=== PATIENT | female | born 2000 | race Caucasian/White ===

== ENCOUNTER 2021-06-13 10:51 | Emergency (ER) | payer OTHER, SELFPAY ==
[2021-06-13 11:02] VITALS: BP 103/60; PULSE 91; RESP 18; TEMP 36.8; O2SAT 99
--- NOTE | 2021-06-13 11:04 | ED.URI ---
HPI - URI/Sore Throat General Chief Complaint: Upper Respiratory Infection Stated Complaint: sore throat,cold sweats Time Seen by Provider: 06/13/21 11:04 Source: patient and RN notes reviewed Mode of arrival: ambulatory Limitations: no limitations History of Present Illness HPI Narrative: 20-year-old female presents to the [facility] with complaints of sweats and sore throat. Patient reports sore throat started at 1900 last night. Developed a fever of 100.4 this morning took some medications. Has subsided. No other symptoms at this time. MD elicited complaint: sore throat Related Data Home Medications Medication Instructions Recorded Confirmed No Home Medications 06/13/21 06/13/21 Allergies Allergy/AdvReac Type Severity Reaction Status Date / Time No Known Allergies Allergy Verified 06/13/21 11:19 Review of Systems Review of Systems: All systems reviewed & are unremarkable except as noted in HPI and below Constitutional: Constitutional: Reports no additional constitutional complaints, Denies chills and Denies fever(s) Eyes: Eyes: Reports no additional eye complaints ENT: Reports as per HPI and Reports sore throat Cardiovascular: Cardiovascular: Reports no additional cardiovascular complaints Respiratory: Respiratory: Reports no additional respiratory complaints, Denies cough and Denies dyspnea Gastrointestinal: Gastrointestinal: Reports no additional gastrointestinal complaints Musculoskeletal: Musculoskeletal: Reports no additional musculoskeletal complaints Integumentary/Breasts: Skin/Breast: Reports system reviewed and no additional complaints, except as docu Neurologic: Reports system reviewed and no additional complaints, except as documented Psychiatric: Psychiatric: Reports no additional psychiatric complaints Allergic/Immunologic: Allergic/Immunologic: Reports no additional allergic/immunologic complaints PMFSH Past Medical History Medical History (Updated 06/13/21 @ 19:20 by Elida Peterson) No significant medical problems Surgical History Surgical History (Updated 06/13/21 @ 19:20 by Elida Peterson) No significant past surgical history Social History Social History (Updated 06/13/21 @ 19:20 by Elida Peterson) Occupation/Education: student Gender identity (if verbalized by the patient): Female Comments At the time of my signature, I reviewed and agree with the nursing past medical, surgical, social, and family history. There is no relevant family history pertinent to the patient complaint. Exam Const: General: healthy appearing, no acute distress and alert Nutritional Appearance: well nourished Orientation/consciousness: patient oriented x3 Limitations: no limitations HENMT: Head: normal to inspection Ears: external ears normal, TM's normal bilaterally and EAC's normal General nose exam: Normal external nose present and Normal nares present Face and sinus: normal facial exam and sinuses nontender Mouth: Yes moist mucous membranes Throat: posterior oropharynx normal and uvula midline Eyes: Conjunctivae: conjunctivae normal Pupils: Equal, round and reactive pupils present Neck: Neck: normal visual inspection, no lymphadenopathy and no meningeal signs Chest: Chest palpation & inspection: normal inspection of the chest Resp: Effort & Inspection: normal respiratory effort and no use of accessory muscles Auscultation: clear to auscultation bilaterally, no crackles, no rales, no rhonchi and no wheezes Cardio: Rate: regular rate Rhythm: regular rhythm GI: GI Palp: Yes Soft to palpation and No Tenderness to palpation present (GI) : General: Yes no CVA tenderness Skin: General skin exam: normal color Neuro: General: patient oriented x3, moves all extremities, no meningeal signs and no focal motor deficits Speech: normal speech Gait exam (Neuro): Normal gait present Extrem: General: normal to inspection Psych: Appearance: grossly normal and well kempt M
== END 2021-06-13 11:44 | disposition home or self-care (01) ==
PROVIDERS: Emergency Provider Nurse Practitioner
DX: J02.8 Acute pharyngitis due to other specified organisms (principal)
CPT/HCPCS: 87081; 87880; 99203; G0463

== ENCOUNTER 2021-12-21 10:18 | Emergency (ER) | payer OTHER, SELFPAY ==
[2021-12-21 10:43] VITALS: BP 94/56; PULSE 89; RESP 18; TEMP 36.3; O2SAT 100
--- NOTE | 2021-12-21 11:19 | ED.UPPEXIN ---
HPI - Extremity Injury (Upper) General Chief Complaint: Extremity Injury, Upper Stated Complaint: lt middle finger swelling and redness Time Seen by Provider: 12/21/21 10:50 Source: patient Mode of arrival: ambulatory Limitations: no limitations History of Present Illness HPI narrative: 21-year-old female presents with complaint of pain, redness and swelling to left middle finger. Reports symptoms for about a week. States that she has been draining the area herself but is not completely getting better. States that she does bite her nails and cuticles and had been specifically biting and picking at this finger. Denies fever chills. All systems reviewed and negative except as noted above. Related Data Allergies Allergy/AdvReac Type Severity Reaction Status Date / Time No Known Allergies Allergy Verified 12/21/21 11:00 Review of Systems Review of Systems: CONSTITUTIONAL: Denies fever, chills, or sweats. EYES: Denies visual changes, redness, or discharge. ENT: Denies rhinorrhea, congestion, sore throat, or otalgia. CARDIOVASCULAR: Denies chest pain, palpitations, or edema. RESPIRATORY: Denies cough or dyspnea. GASTROINTESTINAL: Denies abdominal pain, nausea, vomiting, or diarrhea. GENITOURINARY: Denies dysuria or hematuria. SKIN: Reports tenderness, redness and swelling to distal aspect of left middle finger. MUSCULOSKELETAL: Denies back pain, joint pain, or myalgia. NEUROLOGIC: Denies headache, numbness, or weakness. PSYCHIATRIC: Denies anxiety or depression. All other systems reviewed are negative, except as documented in HPI. [facility] Past Medical History Medical History (Updated 12/21/21 @ 11:06 by Kenisha Rojas NP) No significant medical problems Surgical History Surgical History (Updated 06/13/21 @ 19:20 by Elida Peterson APRN) No significant past surgical history Social History Social History (Updated 06/13/21 @ 19:20 by Elida Peterson APRN) Gender identity (if verbalized by the patient): Female Comments At time of signature, agree with nursing past medical, surgical, social and family history. There is no relevant family history pertinent to the presenting complaint. Exam Narrative: GENERAL: This is a well-nourished, well-developed patient, in no apparent distress. HEAD: normocephalic, atraumatic. EYES: PERRL. Sclera clear/white. Vision is grossly intact. EARS: External ears normal NOSE: External nose normal NECK: Neck supple, non-tender without lymphadenopathy, masses or thyromegaly. CARDIOVASCULAR: Regular rate and rhythm without murmurs, gallops, or rubs. RESPIRATORY: Clear to auscultation. Breath sounds equal bilaterally. No wheezes, rales, or rhonchi. SKIN: warm, Dry, intact with no suspicious lesions or rash, good texture and turgor. Erythema, swelling to lateral aspect of cuticle of left middle finger. There is no drainage. There is no fluctuance or purulence noted to perform an I&D. NEURO: awake, alert, and oriented to person, place and time. There were no obvious focal neurologic abnormalities. EXTREMITIES: Normal range of motion to all extremities. Course Course Level of Care: Express Care Visit Vital Signs Vital signs: Vital Signs Temperature 36.3 C L 12/21/21 10:43 Pulse Rate 89 12/21/21 10:43 Respiratory Rate 18 12/21/21 10:43 Blood Pressure 94/56 L 12/21/21 10:43 Pulse Oximetry 100 12/21/21 10:43 Temperature 36.3 C L 12/21/21 10:43 Pulse Rate 89 12/21/21 10:43 Respiratory Rate 18 12/21/21 10:43 Blood Pressure 94/56 L 12/21/21 10:43 Pulse Oximetry 100 12/21/21 10:43 Reviewed MDM - Extremity Injury (Upper) MDM Narrative Medical decision making narrative: Patient is aware of diagnosis, understands and agrees to treatment plan. Anticipatory guidance given. Patient agrees to follow-up as directed and is aware of reasons to seek care at the emergency department. Portions of this record may have been created with voice recognition soft
== END 2021-12-21 11:09 | disposition home or self-care (01) ==
PROVIDERS: Emergency Provider Nurse Practitioner Family
DX: L03.012 Cellulitis of left finger (principal)
CPT/HCPCS: 99213; G0463

== ENCOUNTER 2022-01-19 13:19 | Emergency (ER) | payer OTHER, SELFPAY ==
--- NOTE | 2022-01-19 13:23 | ED.FEMALEGU ---
HPI - Female Genitourinary General Chief complaint: Urogenital-Female Stated complaint: poss std exposure Time Seen by Provider: 01/19/22 13:23 Source: patient Mode of arrival: ambulatory Limitations: no limitations History of Present Illness HPI Narrative: Ms. Sam is a 21-year-old female patient presenting to the clinic today with complaints of possible STD exposure. She reports that she got a call from a sexual partner that had tested positive for chlamydia. She denies any vaginal odor, discharge, or pelvic pain. She is seeking treatment. She denies any fever, chills, back pain, urinary symptoms, nausea, vomiting, or diarrhea MD elicited complaint: possible STD Related Data Allergies Allergy/AdvReac Type Severity Reaction Status Date / Time No Known Allergies Allergy Verified 01/19/22 13:42 Review of Systems Review of Systems: Pertinent positives per HPI. Patient denies any fever, chills, rash, headache, visual changes, dizziness, cough, runny nose, sore throat, shortness of breath, chest pain, palpitations, nausea, vomiting, diarrhea, constipation, abdominal pain, or any urinary issues. PMFSH Past Medical History Medical History No significant medical problems Surgical History Surgical History No significant past surgical history Social History Social History Gender identity (if verbalized by the patient): Female Exam Narrative: General: Well-developed, well nourished, in no apparent distress Head: Normocephalic, atraumatic. Cardio: Regular rate and rhythm, s1 and s2 normal, no murmur appreciated. Resp: Clear to auscultation bilaterally, no rhonchi, rales, wheezing or rubs. Abdomen: Soft, pliable, bowel sounds present in all quadrants, non-tender to palpation, no organomegaly, no CVAT tenderness. : Deferred Course Course Emergency Course: This electronic medical record was dictated using voice recognition software and may contain some grammatical errors. Level of Care: Express Care Visit Vital Signs Vital signs: Vital signs reviewed MDM - Female Genitourinary MDM Narrative Medical decision making narrative: The time of visit patient is resting comfortably on the exam table. She denies any vaginal discharge, pain, or foul odor. Dirty urine was left to send off for trichomonas, chlamydia, and gonorrhea. Treated patient with 500 mg of Rocephin IM and 7-day course of doxycycline sent to her pharmacy. Anticipatory guidance and supportive measures were discussed and patient voiced understanding of discharge instructions. Differential Diagnosis Differential diagnosis: Likely bacterial vaginosis, trichomoniasis, cervicitis, vaginitis and other (Chlamydia, gonorrhea) Discharge Plan Discharge Clinical Impression: Exposure to STD Patient Disposition: Home, Self-Care Condition: Stable Instructions: Antibiotic Form, Sexually Transmitted Diseases (ED), Safe Sex Practices (ED) Additional Instructions: UA negative for any signs of infection-sent for chlamydia, gonorrhea, and trichomonas testing Rocephin 500 mg IM given in the clinic today. No vaginal, oral, or anal intercourse x1 week. Take doxycycline until its gone as prescribed Increase fluids and stay well-hydrated Use safe sex practices Follow-up with your PCP as needed Prescriptions: New doxycycline monohydrate 100 mg capsule 100 mg PO BID 7 Days Qty: 14 0RF Follow-up/Referrals: PHYSICIAN,MARKETING RECRUITER [Primary Care Provider] - Time of Disposition: 13:48
[2022-01-19 13:32] VITALS: BP 109/65; PULSE 73; RESP 18; TEMP 36.5; O2SAT 100
[2022-01-19] MEDS: cefTRIAXone 500 MG, LIDOCAINE HCL 1% LOCAL INJ 1 ML IM (13:49)
== END 2022-01-19 14:05 | disposition home or self-care (01) ==
PROVIDERS: Emergency Provider Nurse Practitioner Family
DX: Z20.2 Contact with and (suspected) exposure to infections with a predominantly sexual mode of transmission (principal)
CPT/HCPCS: 81003; 87491; 87591; 87661; 96372; 99214; G0463; J0696

== ENCOUNTER 2022-05-09 10:14 | Emergency (ER) | payer OTHER, SELFPAY ==
[2022-05-09 10:27] VITALS: BP 106/75; PULSE 62; RESP 18; TEMP 36.9; O2SAT 100
--- NOTE | 2022-05-09 10:41 | ED.FEMALEGU ---
HPI - Female Genitourinary General Chief complaint: Urogenital-Female Stated complaint: std testing History of Present Illness HPI Narrative: This is a 21 year old that comes in worried as she does not want to have any STD and she is in a serious relationship and she just wants to make sure that she is clean. 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 Patient denies any symptoms of STD no urination issues no sores, no pain . Patient states she does have something by her mouth that I will not be able to see but can feel like something is coming possibly a pimple she denies any history of herpes. Related Data Home Medications Medication Instructions Recorded Confirmed quetiapine 50 mg tablet 50 mg PO HS 05/09/22 05/09/22 Allergies Allergy/AdvReac Type Severity Reaction Status Date / Time No Known Allergies Allergy Verified 05/09/22 10:24 Review of Systems Review of Systems: All systems reviewed & are unremarkable except as noted in HPI and below PMFSH Past Medical History Medical History No significant medical problems Surgical History Surgical History No significant past surgical history Social History Social History Gender identity (if verbalized by the patient): Female Exam Narrative: GENERAL:Well-appearing, well-nourished, and in no acute distress. HEAD:Normocephalic, atraumatic. EYES: PERRLA and EOMI. ENT: Nares clear, no rhinorrhea or epistaxis. Mucous membranes moist. NECK: Supple. CHEST: Clear to auscultation. No respiratory distress. HEART: Regular rate and rhythm. No murmur heard. Normal peripheral pulses. ABDOMEN: Soft, nontender, nondistended, normal active bowel sounds. EXTREMITIES: Normal range of motion. No edema. SKIN: Warm, dry, no rash. NEURO: No focal deficits. Alert and oriented x3. Course Course Level of Care: Express Care Visit Vital Signs Vital signs: Vital Signs Temperature 98.5 F 05/09/22 10:27 Pulse Rate 62 05/09/22 10:27 Respiratory Rate 18 05/09/22 10:27 Blood Pressure 106/75 05/09/22 10:27 Pulse Oximetry 100 05/09/22 10:27 Oxygen Delivery Room Air 05/09/22 10:27 Temperature 98.5 F 05/09/22 10:27 Pulse Rate 62 05/09/22 10:27 Respiratory Rate 18 05/09/22 10:27 Blood Pressure 106/75 05/09/22 10:27 Pulse Oximetry 100 05/09/22 10:27 Oxygen Delivery Room Air 05/09/22 10:27 MDM - Female Genitourinary MDM Narrative Medical decision making narrative: trich/Gonc culture sent Lab Data Labs: Urine Glucose Negative Reference Range: Negative Urine Bilirubin Negative Reference Range: Negative Urine Ketone Negative Reference Range: Negative Urine Specific [place] 1.030 Reference Range:1.001-1.035 Urine Blood Negative Reference Range: Negative * * Urine pH 6.5 Reference Range: 5.0-9.0 Urine Protein Negative Reference Range: Negative Urine Urobilinogen 0.2 Reference Range: 0.2-1.0 Urine Nitrate Negative Reference Range: Negative Urine Leukocyte Negative Reference Range: Negat
== END 2022-05-09 10:52 | disposition home or self-care (01) ==
PROVIDERS: Emergency Provider Nurse Practitioner Family
DX: Z70.8 Other sex counseling (principal); Z11.3 Encounter for screening for infections with a predominantly sexual mode of transmission
CPT/HCPCS: 81003; 87491; 87591; 87661; 99214; G0463

== ENCOUNTER 2022-08-04 11:43 | Emergency (ER) | payer OTHER, SELFPAY ==
[2022-08-04 11:48] VITALS: BP 107/71; PULSE 101; RESP 16; TEMP 37.7; O2SAT 99
--- NOTE | 2022-08-04 12:15 | ED.URI ---
HPI - URI/Sore Throat General Chief Complaint: Upper Respiratory Infection Stated Complaint: COUGH/FEVER Time Seen by Provider: 08/04/22 12:19 Source: patient and RN notes reviewed Mode of arrival: ambulatory Limitations: no limitations History of Present Illness HPI Narrative: 21-year-old female presented for complaint of cough, sore throat, and fever over the last 2 days. She endorses sore throat is improved today. She denies shortness of breath, wheezing, nausea, vomiting, diarrhea. She states her temperature was up to 101 this morning. She has taken Tylenol for symptoms. Denies sick contacts. MD elicited complaint: cough Related Data Home Medications Medication Instructions Recorded Confirmed quetiapine 50 mg tablet 50 mg PO HS 05/09/22 05/09/22 lamotrigine 25 mg tablet 25 mg PO DIRECTED 08/04/22 08/04/22 Allergies Allergy/AdvReac Type Severity Reaction Status Date / Time No Known Allergies Allergy Verified 05/09/22 10:24 Review of Systems Review of Systems: ROS per HPI [facility] Past Medical History Medical History No significant medical problems Surgical History Surgical History No significant past surgical history Social History Social History Gender identity (if verbalized by the patient): Female Exam Narrative: GENERAL: well-appearing, nontoxic no acute distress. HEAD: Normocephalic EYES: PERRLA, conjunctivae clear ENT: Mucous membranes moist. TMs pearly mistry with dull light reflex bilaterally; no tragal tenderness. Oropharynx normal without lesions or exudate, no drooling, no hoarseness, no trismus, uvula midline. CHEST: Clear to auscultation, breath sounds equal. No wheezing, rhonchi, rales, or stridor. No respiratory distress, speaks in full sentences. HEART: Regular rate and rhythm. No murmur heard. SKIN: Warm, dry, no rash. NEURO: Alert and oriented x3. PSYCH: Normal mood and affect Course Course Emergency Course: Patient is aware of diagnosis, understands and agrees to treatment plan. Anticipatory guidance given. Patient agrees to follow-up as directed and is aware of reasons to seek care at the emergency department. Portions of this record may have been created with voice recognition software Level of Care: Express Care Visit Vital Signs Vital signs: Vital Signs Temperature 99.9 F H 08/04/22 11:48 Pulse Rate 101 H 08/04/22 11:48 Respiratory Rate 16 08/04/22 11:48 Blood Pressure 107/71 08/04/22 11:48 Pulse Oximetry 99 08/04/22 11:48 Oxygen Delivery Room Air 08/04/22 11:48 Temperature 99.9 F H 08/04/22 11:48 Pulse Rate 101 H 08/04/22 11:48 Respiratory Rate 16 08/04/22 11:48 Blood Pressure 107/71 08/04/22 11:48 Pulse Oximetry 99 08/04/22 11:48 Oxygen Delivery Room Air 08/04/22 11:48 reviewed MDM - URI/Sore Throat MDM Narrative Medical decision making narrative: flu positive. Advised supportive measures and signs/symptoms to go to the ER. Pt is appropriate for outpt treatment and f/u. Differential Diagnosis Differential diagnosis: Likely upper respiratory infection, sinusitis and viral infection Lab Data Labs: Influenza A Screen Positive Reference Range: Negative Influenza B Screen Negative Reference Range: Negative Discharge Plan Discharge Clinical Impression: Influenza Patient Disposition: Home, Self-Care Condition: Stable Instructions: Influenza (ED) Additional Instructions: Influenza positive You should avoid crowds until you are fever free for 24 hours without the use of fever reducing medications, or the symptoms are improved Rest. Drink plenty of fluids. Tylenol and ibuprofen every 8 hours as needed fo
== END 2022-08-04 12:53 | disposition home or self-care (01) ==
PROVIDERS: Emergency Provider Nurse Practitioner Family
DX: J10.1 Influenza due to other identified influenza virus with other respiratory manifestations (principal)
CPT/HCPCS: 87804; 99213; G0463

== ENCOUNTER 2023-06-22 09:45 | Emergency (ER) | payer OTHER, SELFPAY ==
[2023-06-22 09:52] VITALS: BP 123/75; PULSE 88; RESP 18; TEMP 36.8; O2SAT 100
--- NOTE | 2023-06-22 10:09 | ED.URI ---
HPI - URI/Sore Throat General Chief Complaint: Upper Respiratory Infection Stated Complaint: Congestion,Cough Time Seen by Provider: 06/22/23 10:00 Source: patient Mode of arrival: ambulatory Limitations: no limitations History of Present Illness HPI Narrative: 22-year-old female presents with complaint nasal congestion, cough, postnasal drainage for 2 weeks. Patient taking Mucinex with no relief of symptoms. Afebrile. Feels like congestion is getting progressively worse. All systems reviewed and negative except as noted above. Related Data Allergies Allergy/AdvReac Type Severity Reaction Status Date / Time No Known Allergies Allergy Verified 06/22/23 09:47 Review of Systems Review of Systems: CONSTITUTIONAL: Denies fever, chills, or sweats. EYES: Denies visual changes, redness, or discharge. ENT: Reports rhinorrhea, congestion. Denies sore throat, or otalgia. CARDIOVASCULAR: Denies chest pain, palpitations, or edema. RESPIRATORY: reports cough. Denies dyspnea. GASTROINTESTINAL: Denies abdominal pain, nausea, vomiting, or diarrhea. GENITOURINARY: Denies dysuria or hematuria. SKIN: Denies rash or itching. MUSCULOSKELETAL: Denies back pain, joint pain, or myalgia. NEUROLOGIC: Denies headache, numbness, or weakness. PSYCHIATRIC: Denies anxiety or depression. All other systems reviewed are negative, except as documented in HPI. [facility] Past Medical History Medical History No significant medical problems Surgical History Surgical History No significant past surgical history Social History Social History Occupation/Education: student Gender identity (if verbalized by the patient): Female Comments At time of signature, agree with nursing past medical, surgical, social and family history. There is no relevant family history pertinent to the presenting complaint. Exam Narrative: GENERAL: This is a well-nourished, well-developed patient, in no apparent distress. HEAD: normocephalic, atraumatic. EYES: PERRL. Sclera clear/white. Vision is grossly intact. EARS: External ears normal, auditory canals clear and without drainage, TMs normal without perforation. Hearing grossly intact. NOSE: External nose normal clear nasal drainage, erythema to bile nares with swelling. Significant amount nasal congestion noted. Bilateral maxillary sinus tenderness on palpation. THROAT: Mucous membranes moist, Postnasal drainage with mild erythema and swelling. NECK: Neck supple, non-tender without lymphadenopathy, masses or thyromegaly. CARDIOVASCULAR: Regular rate and rhythm without murmurs, gallops, or rubs. RESPIRATORY: Clear to auscultation. Breath sounds equal bilaterally. No wheezes, rales, or rhonchi. SKIN: warm, Dry, intact with no suspicious lesions or rash, good texture and turgor. NEURO: awake, alert, and oriented to person, place and time. There were no obvious focal neurologic abnormalities. EXTREMITIES: No joint tenderness, effusion, or edema noted. Course Course Level of Care: Express Care Visit Vital Signs Vital signs: Vital Signs Temperature 36.8 C 06/22/23 09:52 Pulse Rate 88 06/22/23 09:52 Respiratory Rate 18 06/22/23 09:52 Blood Pressure 123/75 06/22/23 09:52 Pulse Oximetry 100 06/22/23 09:52 Oxygen Delivery Room Air 06/22/23 09:52 Temperature 36.8 C 06/22/23 09:52 Pulse Rate 88 06/22/23 09:52 Respiratory Rate 18 06/22/23 09:52 Blood Pressure 123/75 06/22/23 09:52 Pulse Oximetry 100 06/22/23 09:52 Oxygen Delivery Room Air 06/22/23 09:52 Reviewed MDM - URI/Sore Throat MDM Narrative Medical decision making narrative: Patient is aware of diagnosis, understands and agrees to treatment plan. Anticipatory guidance given. Patient agrees to follow-up as directed and is awar
== END 2023-06-22 10:10 | disposition home or self-care (01) ==
PROVIDERS: Emergency Provider Nurse Practitioner Family
DX: J01.90 Acute sinusitis, unspecified (principal); Z86.16 Personal history of COVID-19
CPT/HCPCS: 99213; G0463

== ENCOUNTER 2023-09-06 09:34 | Emergency (ER) | payer OTHER, SELFPAY ==
--- NOTE | 2023-09-06 09:43 | ED.URI ---
HPI - URI/Sore Throat General Chief Complaint: Upper Respiratory Infection Stated Complaint: Runny Nose, Cold Time Seen by Provider: 09/06/23 09:45 History of Present Illness HPI Narrative: 22-year-old female presented for complaint of sore throat, nasal congestion and cough for about 2 days. Endorses cough is productive of green sputum. She denies shortness of breath, wheezing, nausea, vomiting, diarrhea, fevers or chills. She is not taking anything for symptoms. She denies known sick contacts. Related Data Home Medications Medication Instructions Recorded Confirmed No Home Medications 09/06/23 09/06/23 Allergies Allergy/AdvReac Type Severity Reaction Status Date / Time No Known Allergies Allergy Verified 09/06/23 09:44 Review of Systems Review of Systems: CONSTITUTIONAL: Denies body aches, fever, chills, or sweats. EYES: Denies visual changes, redness, or discharge. ENT: Reports rhinorrhea, congestion, sore throat Denies otalgia. CARDIOVASCULAR: Denies chest pain, palpitations, or edema. RESPIRATORY: Denies dyspnea. GASTROINTESTINAL: Denies abdominal pain, nausea, vomiting, or diarrhea. SKIN: Denies rash, itching, or wounds. MUSCULOSKELETAL: Denies back pain, joint pain, or myalgia. NEUROLOGIC: Denies headache PMFSH Past Medical History Medical History No significant medical problems Surgical History Surgical History No significant past surgical history Social History Social History Occupation/Education: student Gender identity (if verbalized by the patient): Female Exam Narrative: GENERAL: well-appearing, no acute distress. EYES: conjunctivae clear ENT: Mucous membranes moist. TMs pearly mistry with normal light reflex bilaterally; no tragal tenderness. Oropharynx mildly erythematous without lesions. Tonsils not enlarged and without exudate. No drooling, no hoarseness, no trismus, uvula midline. No tripod positioning, hot potato voice, or soft palate swelling. NECK: Supple. No lymphadenopathy CHEST: Clear to auscultation, breath sounds equal. No respiratory distress, speaks in full sentences. HEART: Regular rate and rhythm. No murmur heard. SKIN: Warm, dry, no rash. NEURO: Alert and oriented x3. Course Course Emergency Course: Patient is aware of diagnosis, understands and agrees to treatment plan. Anticipatory guidance given. Patient agrees to follow-up as directed and is aware of reasons to seek care at the emergency department. Portions of this record may have been created with voice recognition software Level of Care: Express Care Visit Vital Signs Vital signs: Vital Signs Pulse Rate 96 09/06/23 09:52 Respiratory Rate 18 09/06/23 09:52 Blood Pressure 136/73 09/06/23 09:52 Pulse Oximetry 100 09/06/23 09:52 Oxygen Delivery Room Air 09/06/23 09:52 Pulse Rate 96 09/06/23 09:52 Respiratory Rate 18 09/06/23 09:52 Blood Pressure 136/73 09/06/23 09:52 Pulse Oximetry 100 09/06/23 09:52 Oxygen Delivery Room Air 09/06/23 09:52 MDM - URI/Sore Throat MDM Narrative Medical decision making narrative: Flu, COVID, strep results reviewed with pt. Advise supportive treatments. Patient is appropriate for outpatient treatment and follow-up. Differential Diagnosis Differential diagnosis: Likely upper respiratory infection, viral infection and pharyngitis Lab Data Labs: Influenza A Screen Negative Reference Range: Negative Influenza B Screen Negative Reference Range: Negative Strep Screen Presumptive Negative *(Reference Range: Negative)* Discharge Plan Discharge Clinical Impression:
[2023-09-06 09:52] VITALS: BP 136/73; PULSE 96; RESP 18; O2SAT 100
== END 2023-09-06 10:16 | disposition home or self-care (01) ==
PROVIDERS: Emergency Provider Nurse Practitioner Family
DX: J06.9 Acute upper respiratory infection, unspecified (principal); Z20.822 Contact with and (suspected) exposure to COVID-19
CPT/HCPCS: 87081; 87426; 87804; 87880; 99213; G0463